=== PATIENT | male | born 1925 | race Caucasian/White ===

== ENCOUNTER → 2017-02-07 | Outpatient (REF) | payer MEDICARE, OTHER ==
[~2017-02-07] MED LIST: ALDA25TA2 PO; ASPI1TAB PO; ATEN50TA2 PO; COLA100C3 PO; DEMA20TA6 PO; ELIQ5TAB PO; FINA5TAB2 PO; FURO40TA2 PO; LEVA500T PO; OMEG100011 PO; OMEP40CA2 PO; SAVICAP PO; SENN1TAB2 PO; SIMV40TA2 PO; TERA2CAP3 PO; TYLE325T5 PO
[2017-02-07 19:07] LABS: MEAN CORPUSCULAR HEMOGLOBIN 29.2 pg (27.0-33.0); MEAN CORPUSCULAR HGB CONC 32.1 g/dl (32.0-36.5); MEAN CORPUSCULAR VOLUME 90.9 fl (80.0-96.0); RED CELL DISTRIBUTION WIDTH 12.8 % (11.5-14.5); WHITE BLOOD COUNT 4.6 K/mm3 (4.0-10.0)
[2017-02-07 19:18] LABS: ALBUMIN 3.7 GM/DL (3.2-5.2); ALBUMIN/GLOBULIN RATIO 1.03 (1.00-1.93); BILIRUBIN,TOTAL 0.4 MG/DL (0.2-1.0); CALCIUM LEVEL 9.2 MG/DL (8.8-10.2); CREATININE FOR GFR 2.07 MG/DL (0.70-1.30); GLOMERULAR FILTRATION RATE 32.3 (>35); MAGNESIUM LEVEL 2.4 MG/DL (1.8-2.4); POTASSIUM SERUM 4.6 MEQ/L (3.5-5.1); TOTAL PROTEIN 7.3 GM/DL (6.4-8.2)
== END ==
LOC: M SFHCPLAZ 15:52
PROVIDERS: ATTEND Internal Medicine
DX: N18.3 Chronic kidney disease, stage 3 (moderate) (principal); D63.1 Anemia in chronic kidney disease; E78.00 Pure hypercholesterolemia, unspecified
CPT/HCPCS: 36415; 80053; 80061; 83735; 83970; 85027; G0463

== ENCOUNTER → 2017-04-23 | Outpatient (CLI) | payer MEDICARE, OTHER ==
[~2017-04-23] MED LIST changes: +ASPI81TA85 PO; +CEPH500C PO; -COLA100C3 PO; +COLA100C5 PO; +ELIQ2.5T PO; +FURO20TA2 PO; +LACT10SO3; +LEVA1TAB2 PO; -LEVA500T PO; +PERC5TAB12 PO; +ROCA0.5C PO
--- NOTE | 2017-04-23 15:31 | REP ---
Clinical: Right lower extremity swelling. Technique: Real time huynh scale and color Doppler evaluation using linear high frequency transducer. Comparison: 04/24/2015. Findings: Thrombus identified extending from the common femoral vein to the popliteal vein. Two patent duplicated mid to distal femoral veins noted. Impression: Acute and/or chronic deep venous thrombosis from the common femoral vein to the popliteal vein. Signed by Joon Viera MD 04/23/2017 03:23 P
== END ==
LOC: M RAD 14:30
PROVIDERS: ATTEND Nurse Practitioner Family
DX: M79.89 Other specified soft tissue disorders (principal); I82.411 Acute embolism and thrombosis of right femoral vein; I82.431 Acute embolism and thrombosis of right popliteal vein
CPT/HCPCS: 93971; G0463

== ENCOUNTER 2017-04-30 16:37 | Emergency (ER) | payer MEDICARE, OTHER ==
[~2017-04-30] VITALS: Ht 170.2 cm; Wt 175.0 kg
[~2017-04-30 16:37] MED LIST changes: -ASPI81TA85 PO; -CEPH500C PO; -ELIQ2.5T PO; -FURO20TA2 PO; -LACT10SO3; -PERC5TAB12 PO; -ROCA0.5C PO
[2017-04-30] MEDS ORDERED: ELIQ2.5T PO (16:59)
[2017-04-30] MEDS ORDERED: ASPI81TA85 PO (16:59)
[2017-04-30] MEDS ORDERED: ROCA0.5C PO (16:59)
[2017-04-30] MEDS ORDERED: CEPH500C PO (16:59)
[2017-04-30] MEDS ORDERED: ATEN50TA2 PO (16:59)
[2017-04-30] MEDS ORDERED: FURO20TA2 PO (16:59)
[2017-04-30 19:20] LABS: BASO % 0.2 % (0.0-1.0); EOS # 0.1 K/mm3 (0.0-0.50); EOS % 2.9 % (0.0-3.0); LARGE UNSTAINED CELL # 0.2 K/mm3 (0.0-0.4); LARGE UNSTAINED CELL % 3.2 % (0.0-4.0); LYMPH % 19.7 % (24.0-44.0); MEAN CORPUSCULAR HEMOGLOBIN 29.9 pg (27.0-33.0); MEAN CORPUSCULAR HGB CONC 32.9 g/dl (32.0-36.5); MEAN CORPUSCULAR VOLUME 90.8 fl (80.0-96.0); MONO # 0.4 K/mm3 (0.0-0.8); MONO % 9.2 % (0.0-5.0); NEUTROPHILS # 2.9 K/mm3 (1.8-7.7); NEUTROPHILS % 64.8 % (36.0-66.0); PLATELET COUNT, AUTOMATED 153 k/mm3 (150-450); RED CELL DISTRIBUTION WIDTH 13.5 % (11.5-14.5); WHITE BLOOD COUNT 4.5 K/mm3 (4.0-10.0)
[2017-04-30 19:24] LABS: INR 1.07
[2017-04-30 19:32] LABS: CALCIUM LEVEL 9.5 MG/DL (8.8-10.2); CREATININE FOR GFR 2.04 MG/DL (0.70-1.30); GLOMERULAR FILTRATION RATE 32.9 (>35); POTASSIUM SERUM 4.6 MEQ/L (3.5-5.1)
[2017-04-30] MEDS ORDERED: PERCOCET 5MG/325MG TAB PO ONE (20:00)
[2017-04-30 22:08] VITALS: BP 174/81
[2017-04-30] MEDS ORDERED: PERC5TAB12 PO (22:20)
[2017-04-30] MEDS ORDERED: OXYCODONE/APAP 5MG/325MG(BULK FOR ED) 1 TABLET PO ONE (22:30)
== END 2017-04-30 23:07 | disposition home or self-care (01) ==
LOC: M ED 16:37
DX: I82.401 Acute embolism and thrombosis of unspecified deep veins of right lower extremity (principal); Z79.01 Long term (current) use of anticoagulants

== ENCOUNTER 2017-06-03 18:43 | Emergency (ER) | payer MEDICARE, OTHER ==
[~2017-06-03] VITALS: Ht 170.2 cm; Wt 79.5 kg
[~2017-06-03 18:43] MED LIST changes: +ASPI81TA85 PO; +CEPH500C PO; +ELIQ2.5T PO; +FURO20TA2 PO; +PERC5TAB12 PO; +ROCA0.5C PO
[2017-06-03] MEDS ORDERED: NS 1,000 ML IV SCH (19:28)
[2017-06-03] MEDS ORDERED: GASTROGRAFIN SOLUTION 30ML (Q9963) PO ONE ×2 (19:45→20:45)
[2017-06-03 20:44] LABS: BASO % 0.2 % (0.0-1.0); EOS % 0.5 % (0.0-3.0); LARGE UNSTAINED CELL # 0.1 K/mm3 (0.0-0.4); LARGE UNSTAINED CELL % 0.7 % (0.0-4.0); LYMPH # 0.6 K/mm3 (1.5-4.5); LYMPH % 6.2 % (24.0-44.0); MEAN CORPUSCULAR HEMOGLOBIN 30.5 pg (27.0-33.0); MEAN CORPUSCULAR HGB CONC 33.8 g/dl (32.0-36.5); MEAN CORPUSCULAR VOLUME 90.1 fl (80.0-96.0); MONO # 0.5 K/mm3 (0.0-0.8); MONO % 5.4 % (0.0-5.0); NEUTROPHILS # 7.8 K/mm3 (1.8-7.7); PLATELET COUNT, AUTOMATED 144 k/mm3 (150-450); RED CELL DISTRIBUTION WIDTH 13.3 % (11.5-14.5); WHITE BLOOD COUNT 8.9 K/mm3 (4.0-10.0)
[2017-06-03 20:55] LABS: ALBUMIN 3.6 GM/DL (3.2-5.2); ALBUMIN/GLOBULIN RATIO 0.97 (1.00-1.93); BILIRUBIN,DIRECT 0.1 MG/DL (0.0-0.2); BILIRUBIN,TOTAL 0.5 MG/DL (0.2-1.0); CALCIUM LEVEL 9.6 MG/DL (8.8-10.2); CREATININE FOR GFR 2.18 MG/DL (0.70-1.30); GLOMERULAR FILTRATION RATE 30.5 (>35); POTASSIUM SERUM 4.6 MEQ/L (3.5-5.1); TOTAL PROTEIN 7.3 GM/DL (6.4-8.2)
--- NOTE | 2017-06-03 23:10 | REPUSA ---
CLINICAL HISTORY: Abdominal pain. TECHNIQUE: CT abdomen and pelvis without contrast. Total DLP 552 mGy*cm. COMPARISON: December 06, 2006. CT ABDOMEN WITHOUT CONTRAST: Lung bases: No lung base infiltrate or effusion. Mild interstitial changes suggest chronic interstiti al lung disease. Mild cardiomegaly. Stomach: Large hiatal hernia noted. Liver: No intrahepatic ductal dilation. Gallbladder: Cholecystectomy. Pancreas: No pancreatic duct dilation. Bowel loops: Nondistended. Right lower quadrant ileostomy urinary diversion. Spleen: Normal size. Calcified granulomas. Adrenals: Normal size. Right kidney: Extrarenal pelvis. No stones or hydronephrosis. Left kidney: Extrarenal pelvis. No stones or hydronephrosis. Aorta: Irregular atherosclerotic ectasia and calcifications. Maximal diameter 2.7 cm. IVC: Filter is noted. Peritoneum: No free air. Anterior abdominal wall: Subcutaneous varices. Lumbar spine: Degenerative spondylotic changes at multiple levels with Schmorl's nodes. CT PELVIS WITHOUT CONTRAST: Colon: Nondistended. Appendix: Appendectomy. Bladder: Surgically removed. Pelvic organs: Prostatectomy. Peritoneum: No fluid. Skeleton: No acute findings. IMPRESSION: 1. No acute abdominal findings to explain abdominal pain. 2. IVC filter with chronic occlusion given the appearance of subcutaneous abdominal wall varices. 3. Large hiatal hernia. 4. Right lower quadrant ileostomy urinary diversion.
[2017-06-03 23:59] VITALS: BP 146/65
== END 2017-06-04 00:01 | disposition home or self-care (01) ==
LOC: M ED 18:43
DX: R10.84 Generalized abdominal pain (principal); E78.4 Other hyperlipidemia; I12.9 Hypertensive chronic kidney disease with stage 1 through stage 4 chronic kidney disease, or unspecified chronic kidney disease; N18.9 Chronic kidney disease, unspecified; Z85.51 Personal history of malignant neoplasm of bladder; Z87.891 Personal history of nicotine dependence
CPT/HCPCS: 74176; 80048; 80076; 83605; 83690; 85025; 99283; Q9963

== ENCOUNTER 2017-06-12 20:50 | Emergency (ER) | payer MEDICARE, OTHER ==
[~2017-06-12] VITALS: Ht 170.2 cm; Wt 75.9 kg
[2017-06-12] MEDS ORDERED: LACT10SO3 (21:07)
[2017-06-12] MEDS ORDERED: ACETAMINOPHEN 325 MG TAB PO ONE (22:00)
--- NOTE | 2017-06-12 23:00 | REPUSA ---
CLINICAL HISTORY: R/o DVT. COMMENTS: Real time sonography with duplex doppler of the right lower extremity was performed with attention to the major deep venous structures. Note is made of a chronic nonoccluding thrombosis involving common femoral, superficial femoral and p opliteal venous segments. No evidence of acute DVT. IMPRESSION: Chronic nonoccluding thrombosis involving common femoral, superficial femoral and popliteal venous se gments. No evidence of acute DVT. Thank you for your kind referral of this patient.
[2017-06-13 00:30] VITALS: BP 147/68
== END 2017-06-13 00:49 | disposition home or self-care (01) ==
LOC: M ED 20:50
DX: I82.511 Chronic embolism and thrombosis of right femoral vein (principal); I82.531 Chronic embolism and thrombosis of right popliteal vein; M79.661 Pain in right lower leg; I12.9 Hypertensive chronic kidney disease with stage 1 through stage 4 chronic kidney disease, or unspecified chronic kidney disease; E78.5 Hyperlipidemia, unspecified; K21.9 Gastro-esophageal reflux disease without esophagitis; M54.9 Dorsalgia, unspecified; D64.9 Anemia, unspecified; N18.9 Chronic kidney disease, unspecified; Z79.899 Other long term (current) drug therapy; Z79.01 Long term (current) use of anticoagulants; Z79.82 Long term (current) use of aspirin; Z79.2 Long term (current) use of antibiotics